=== PATIENT | female | born 1995 | race African-American/Black ===

== ENCOUNTER 2016-09-08 13:57 | Emergency (ER) | payer SELFPAY ==
[2016-09-08] MEDS ORDERED: ACETAMINOPHEN 325 MG TABLET PO ONE (14:38)
[2016-09-08] MEDS ORDERED: ONDANSETRON HCL INJ/PF 4 MG/2 ML SDV IV ONE (14:38)
[2016-09-08] MEDS ORDERED: NORMAL SALINE 1000 ML 1,000 ML IV ONE (14:38)
[2016-09-08] MEDS ORDERED: MECLIZINE HCL 25 MG TABLET PO ONE (14:39)
[2016-09-08] MEDS ORDERED: KETOROLAC TROMETHAMINE INJ/PF 30 MG/1 ML SDV IV ONE (14:40)
--- NOTE | 2016-09-08 14:41 | ER Document Report ---
HPI - HPI Patient complains to provider of: Headache Onset: Last week Onset/Duration: Waxing and waning Quality of pain: Achy Pain Level: 2 Context: Presents complaining of frontal headache off and on for the past week. Patient states that she will get the headache daily and that it will go away but then returned the next day. Patient states that she has taken Tylenol and it does help with her symptoms although today it did not completely resolve her headache pain. Patient does report nausea but denies any vomiting. Patient denies any fever. Denies any head injury. Associated Symptoms: Headache, Nausea. denies: Nonproductive cough, Productive cough, Fever, Vomiting Exacerbated by: Denies Relieved by: Denies Similar symptoms previously: No Recently seen / treated by doctor: No - ROS ROS below otherwise negative: Yes Systems Reviewed and Negative: Yes All other systems reviewed and negative - CONSTITUTIONAL Constitutional: DENIES: Fever, Chills - EENT EENT: DENIES: Sore Throat, Congestion - NEURO Neurology: REPORTS: Headache - RESPIRATORY Respiratory: DENIES: Trouble Breathing, Coughing - GASTROINTESTINAL Gastrointestinal: REPORTS: Nausea. DENIES: Patient vomiting - MUSCULOSKELETAL Musculoskeletal: DENIES: Extremity pain, Back Pain, Neck Pain - DERM Skin Color: Normal Skin Problems: None Past Medical History - General Information source: Patient Last Menstrual Period: 09/07/16 - Social History Smoking Status: Never Smoker Frequency of alcohol use: None Drug Abuse: None Occupation: food service supervisor Lives with: Family Family History: Reviewed & Not Pertinent Patient has suicidal ideation: No Patient has homicidal ideation: No - Medical History Medical History: Negative Renal/ Medical History: Denies: Hx Peritoneal Dialysis Surgical Hx: Negative Vertical Provider Document - CONSTITUTIONAL Agree With Documented VS: Yes Exam Limitations: No Limitations General Appearance: WD/WN, No Apparent Distress - INFECTION CONTROL TRAVEL OUTSIDE OF THE [place] IN LAST 30 DAYS: No - HEENT HEENT: Atraumatic, Normal ENT Exam, Normocephalic Notes: no meningismus - NECK Neck: Normal Inspection, Supple. negative: Lymphadenopathy-Left, Lymphadenopathy-Right - RESPIRATORY Respiratory: Breath Sounds Normal, No Respiratory Distress O2 Sat by Pulse Oximetry: 98 - CARDIOVASCULAR Cardiovascular: Regular Rate, Regular Rhythm, No Murmur - BACK Back: Normal Inspection - MUSCULOSKELETAL/EXTREMETIES Musculoskeletal/Extremeties: ISAIAH BLACK - NEURO Level of Consciousness: Awake, Alert, Appropriate Motor/Sensory: No Motor Deficit Notes: Negative Kernig and Brudzinainaki - DERM Integumentary: Warm, Dry, No Rash Course - Re-evaluation Re-evalutation: 09/08/16 16:20 Patient reports that headache pain has improved and that she did not need any additional medication at this time. Discussed results of patient's laboratory studies with patient. Patient encouraged to return as needed for any new or worsening symptoms. - Vital Signs Vital signs: Temp Pulse Resp BP Pulse Ox 99.0 F 94 H 20 136/82 H 98 09/08/16 14:04 09/08/16 14:04 09/08/16 14:04 09/08/16 14:04 09/08/16 14:04 - Laboratory Result Diagrams: 09/08/16 15:19 09/08/16 15:19 Laboratory results interpreted by me: 09/08/16 16:20 Labs- Entire Visit 09/08/16 09/08/16 09/08/16 15:19 15:19 15:19 WBC 6.2 RBC 4.27 Hgb 11.8 L Hct 35.9 L MCV 84 MCH 27.6 MCHC 32.8 RDW 13.4 Plt Count 393 Seg Neutrophils % 59.2 Lymphocytes % 29.9 Monocytes % 8.5 Eosinophils % 1.7 Basophils % 0.7 Absolute Neutrophils 3.7 Absolute Lymphocytes 1.9 Absolute Monocytes 0.5 Absolute Eosinophils 0.1 Absolute Basophils 0.0 Sodium 138.6 Potassium 4.5 Chloride 103 Carbon Dioxide 23 Anion Gap 13 BUN 8 Creatinine 0.54 Est GFR ( Amer) > 60 Est GFR (Non-Af Amer) > 60 Glucose 92 Calcium 9.3 Serum HCG, Qual NEGATIVE Discharge - Discharge Clinical Impression: Headache Qualifiers: Headache type: unspecified Headache chronicity pattern: episodic headache Intractability: not intractable Qualified Code(s): R51 - Headache Condition: Stable Disposition: HOME, SELF-CARE Instructions: Toradol Injection ([facility]), Headache ([facility]), Antinausea Medication ( [facility]), Use of Diphenhydramine Additional Instructions: Return immediately for any new or worsening symptoms Followup with your primary care provider, call tomorrow to make a followup appointment Prescriptions: Butalb/Acetaminophen/Caffeine [Fioricet (50-325-40 mg) Tablet] 1 - 2 tab PO Q4H #20 each Forms: Return to Work Referrals: [facility] [Provider Group] - 09/10/16
[2016-09-08 15:35] LABS: ABSOLUTE EOSINOPHILS # (AUTO) 0.1 10^3/uL (0.0-0.6); ABSOLUTE LYMPHOCYTES (AUTO) 1.9 10^3/uL (0.5-4.7); ABSOLUTE MONOCYTES (AUTO) 0.5 10^3/uL (0.1-1.4); ABSOLUTE NEUT (AUTO) 3.7 10^3/uL (1.7-8.2); BASOPHILS % (AUTO) 0.7 % (0-2); EOSINOPHILS % (AUTO) 1.7 % (0-6); HEMATOCRIT 35.9 % (36.0-47.0); HEMOGLOBIN 11.8 g/dL (12.0-15.5); HGB HCT DIFFERENCE -0.5; LYMPHOCYTES % (AUTO) 29.9 % (13-45); MEAN CORPUSCULAR HEMOGLOBIN 27.6 pg (27.0-33.4); MEAN CORPUSCULAR HGB CONC 32.8 g/dL (32.0-36.0); MEAN CORPUSCULAR VOLUME 84 fl (80-97); MONOCYTES % (AUTO) 8.5 % (3-13); RED BLOOD COUNT 4.27 10^6/uL (3.72-5.28); RED CELL DISTRIBUTION WIDTH 13.4 % (11.5-14.0); SEGMENTED NEUTROPHILS % (AUTO) 59.2 % (42-78); WHITE BLOOD COUNT 6.2 10^3/uL (4.0-10.5)
[2016-09-08 15:50] LABS: ANION GAP 13 (5-19); BLOOD UREA NITROGEN 8 mg/dL (7-20); CALCIUM 9.3 mg/dL (8.4-10.2); CARBON DIOXIDE 23 mmol/L (22-30); CHLORIDE 103 mmol/L (98-107); CREATININE RESULT 0.54 mg/dL (0.52-1.25); GLUCOSE 92 mg/dL (75-110); POTASSIUM 4.5 mmol/L (3.6-5.0); SODIUM 138.6 mmol/L (137-145)
[2016-09-08 16:49] VITALS: BP 110/57
== END 2016-09-08 16:50 | disposition home or self-care (01) ==
LOC: ER 13:57
DX: R51 Headache (principal); R11.0 Nausea
CPT/HCPCS: 99284; 96374; 96375; 36415; 84703; 85025; 80048; J1885; J2405; J7030

== ENCOUNTER 2017-02-20 15:07 | Emergency (ER) | payer MEDICAID ==
[2017-02-20 18:05] LABS: APPEARANCE,URINE CLEAR; BILIRUBIN,URINE NEGATIVE (NEGATIVE); GLUCOSE, URINE NEGATIVE (NEGATIVE); KETONES,URINE NEGATIVE (NEGATIVE); LEUKOCYTE ESTERASE,URINE NEGATIVE (NEGATIVE); NITRITE,URINE NEGATIVE (NEGATIVE); PROTEIN,URINE NEGATIVE (NEGATIVE); UROBILINOGEN,URINE NEGATIVE mg/dL (<2.0)
--- NOTE | 2017-02-20 18:06 | ER Document Report ---
HPI - HPI Pain Level: 1 Notes: Patient is a 21-year-old female who presents the ED with boyfriend complaining of exposure to gonorrhea. Patient's boyfriend came to the ED with her and was diagnosed with gonorrhea and was treated. Patient states that she is otherwise asymptomatic and just came because of the exposure. She has no new concerns or complaints. She is eating and drinking without difficulties. She is urinating normally and having normal bowel movements. She has not noticed any vaginal discharge or odor. Denies any other significant medical history. Denies any headache, fever, neck pain, URI, sore throat, chest pain, palpitations, syncope , cough, shortness of breath, wheeze, dyspnea, abdominal pain, nausea/vomiting/ diarrhea, urinary retention, dysuria, hematuria, numbness/tingling, muscle paralysis/weakness, or rash. - ROS Notes: REVIEW OF SYSTEMS: CONSTITUTIONAL : Denies fever, chills, or sweats. Denies recent illness. EENT: Denies eye, ear, throat, or mouth pain or symptoms. Denies nasal or sinus congestion or discharge. Denies throat, tongue, or mouth swelling or difficulty swallowing. CARDIOVASCULAR: Denies chest pain. Denies palpitations or racing or irregular heart beat. RESPIRATORY: Denies cough, cold, or chest congestion. Denies shortness of breath, difficulty breathing, or wheezing. GASTROINTESTINAL: Denies abdominal pain or distention. Denies nausea, vomiting , or diarrhea. GENITOURINARY: Denies difficulty urinating, painful urination, burning, frequency, blood in urine, or discharge. FEMALE GENITOURINARY: Denies vaginal bleeding, heavy or abnormal periods, irregular periods. Denies vaginal discharge or odor. MUSCULOSKELETAL: Denies back or neck pain or stiffness. Denies joint pain or swelling. SKIN: Denies rash, lesions or sores. NEUROLOGICAL: Denies confusion or altered mental status. Denies passing out or loss of consciousness. Denies dizziness or lightheadedness. Denies headache. Denies weakness or paralysis or loss of use of either side. Denies problems with gait or speech. Denies sensory loss, numbness, or tingling. ALL OTHER SYSTEMS REVIEWED AND NEGATIVE. Dictation was performed using [employer] voice recognition software Past Medical History - Social History Smoking Status: Unknown if Ever Smoked Family History: Reviewed & Not Pertinent Renal/ Medical History: Denies: Hx Peritoneal Dialysis Vertical Provider Document - CONSTITUTIONAL Agree With Documented VS: Yes Notes: PHYSICAL EXAMINATION: GENERAL: Well-appearing, well-nourished and in no acute distress. LUNGS: Breath sounds clear to auscultation bilaterally and equal. No wheezes rales or rhonchi. HEART: Regular rate and rhythm without murmurs, rubs, gallops. ABDOMEN: Soft, nontender, nondistended abdomen. No guarding, no rebound. No masses appreciated. Normal bowel sounds present. No CVA tenderness bilaterally. Extremities: No cyanosis, clubbing, or edema b/l. Peripheral pulses 2+. Capillary refill less than 3 seconds. NEUROLOGICAL: Normal speech, normal gait. Normal sensory, motor exams PSYCH: Normal mood, normal affect. SKIN: Warm, Dry, normal turgor, no rashes or lesions noted. - INFECTION CONTROL TRAVEL OUTSIDE OF THE [place] IN LAST 30 DAYS: No - RESPIRATORY O2 Sat by Pulse Oximetry: 99 Course - Re-evaluation Re-evalutation: 02/20/17 18:07 Patient is an afebrile, well-hydrated, 21-year-old female who presents the ED with exposure to gonorrhea and exposure to scabies. Vitals are stable. PE is otherwise unremarkable. Patient's boyfriend did give permission for us to talk about scabies exposure to this patient. Chlamydia/gonorrhea tests are pending. Urinalysis is also pending. I will not have the patient wait around for results, she may call later for the results and we will treat her prophylactically. patient to be given Zithromax and Rocephin. Patient will need to check in with health department this week for further evaluation and testing. I will send her home with a prescription for permethrin with scabies precautions reviewed. Recheck with your PCM in 3-5 days. Return to the ED with any worsening/concerning symptoms otherwise as reviewed in discharge. Patient is in agreement. - Vital Signs Vital signs: Temp Pulse Resp BP Pulse Ox 98.9 F 78 16 139/77 H 99 02/20/17 15:24 02/20/17 15:24 02/20/17 15:24 02/20/17 15:24 02/20/17 15:24 Discharge - Discharge Clinical Impression: Exposure to gonorrhea, Exposure to scabies Condition: Stable Disposition: HOME, SELF-CARE Instructions: Gonorrhea ([facility]), [facility], Scabies ([facility]) Additional Instructions: Push fluids (i.e. water, cranberry juice) Proper hygenic technique Keep the skin clean Safe sexual practices with condoms everytime Tylenol/ibuprofen as needed May use over the counter AZO for burning with urination Check in with the health department this week for further testing* Your chlamydia/Ghon test are pending and you will be notified if positive results; you may call in 2 days for the results as well You have been given follow up instructions including low cost follow up with one of the local primary care offices. Follow up with them tomorrow for further care and reevaluation. Return immediately if symptoms worsen F/u with your PCM in 3-5 days for a recheck Consider consult with a Urologist for ongoing/worsening symptoms. Return to the ED with any development of MOONEY/fever, trouble with vision, eye redness, worsening pain, urethral discharge, urinary retention, blood in the urine, flank pain, abdominal pain, n/v, Chest Pain, shortness of breath, joint pains, trouble breathing, or any other worsening/concerning symptoms as needed otherwise. Scabies precautions as reviewed Use cream as directed Wash and/or bag of everything in your house Prescriptions: Permethrin [Elimite] 60 gm TP ONCE PRN #1 cream..g. PRN Reason: Forms: Elevated Blood Pressure Referrals: HEALTH DEPT,[facility] [NO LOCAL MD] - Follow up as needed [facility] [Provider Group] - Follow up as needed
[2017-02-20] MEDS ORDERED: LIDOCAINE 1% INJ-PF (10 MG/ML) 30 ML SDV INJ ONE (18:10)
[2017-02-20] MEDS ORDERED: CEFTRIAXONE INJ 250 MG VIAL IM ONE (18:10)
[2017-02-20] MEDS ORDERED: AZITHROMYCIN 250 MG TABLET PO ONE (18:10)
[2017-02-20 18:54] VITALS: BP 124/76
[2017-02-20 19:27] LABS: CHLAM PCR NOT DETECTED (NOT DETECT)
== END 2017-02-20 18:54 | disposition home or self-care (01) ==
LOC: ER 15:07
DX: Z20.2 Contact with and (suspected) exposure to infections with a predominantly sexual mode of transmission (principal); Z20.7 Contact with and (suspected) exposure to pediculosis, acariasis and other infestations
CPT/HCPCS: 99283; 96372; 87086; 81001; 87491; 87591; Q0144; J3490; J0696

== ENCOUNTER 2017-05-17 12:07 | Emergency (ER) | payer MEDICAID ==
[2017-05-17] MEDS ORDERED: FAMOTIDINE 20 MG TABLET PO ONE (12:57)
[2017-05-17] MEDS ORDERED: NORMAL SALINE 1000 ML 1,000 ML IV ONE (12:57)
[2017-05-17] MEDS ORDERED: DIPHENHYDRAMINE HCL 50 MG/ML VIAL IV ONE (12:57)
[2017-05-17] MEDS ORDERED: METHYLPREDNISOLONE INJ 125 MG/2 ML SDV IV ONE (12:57)
--- NOTE | 2017-05-17 12:58 | ER Document Report ---
ED Medical Screen (RME) - General Chief Complaint: Lip Swelling Stated Complaint: LIP SWELLING Time Seen by Provider: 05/17/17 12:32 Mode of Arrival: Ambulatory Information source: Patient Notes: Patient is a 21-year-old -Irish female who presents to the ER today for both lips being very swollen that she woke up with today. Patient states that she is not on any blood pressure medication, lisinopril or any other medication. She has not tried anything new. Patient denies rash anywhere else , difficulty breathing, swollen feeling or sore throat. Patient states this has happened before but not to this extent. TRAVEL OUTSIDE OF THE [place] IN LAST 30 DAYS: No - Related Data Allergies/Adverse Reactions: ciprofloxacin [From Cipro] Allergy (Verified 05/17/17 12:08) phenazopyridine [From Pyridium] Allergy (Verified 05/17/17 12:08) Past Medical History - General Information source: Patient Renal/ Medical History: Denies: Hx Peritoneal Dialysis Review of Systems - Review of Systems EENT: See HPI Physical Exam - Vital signs Vitals: Temp Pulse Resp BP Pulse Ox 98.4 F 92 18 132/85 H 98 05/17/17 12:18 05/17/17 12:18 05/17/17 12:18 05/17/17 12:18 05/17/17 12:18 - Notes Notes: PHYSICAL EXAMINATION: GENERAL: Well-appearing and in no acute distress. ENT: Upper and lower lips with edema, airway patent Course - Vital Signs Vital signs: Temp Pulse Resp BP Pulse Ox 98.4 F 92 18 132/85 H 98 05/17/17 12:18 05/17/17 12:18 05/17/17 12:18 05/17/17 12:18 05/17/17 12:18
[2017-05-17 14:12] LABS: ABSOLUTE BASOPHILS # (AUTO) 0.1 10^3/uL (0.0-0.2); ABSOLUTE EOSINOPHILS # (AUTO) 0.2 10^3/uL (0.0-0.6); ABSOLUTE LYMPHOCYTES (AUTO) 2.1 10^3/uL (0.5-4.7); ABSOLUTE MONOCYTES (AUTO) 0.5 10^3/uL (0.1-1.4); ABSOLUTE NEUT (AUTO) 3.4 10^3/uL (1.7-8.2); BASOPHILS % (AUTO) 1.2 % (0-2); EOSINOPHILS % (AUTO) 2.6 % (0-6); HEMATOCRIT 38.1 % (36.0-47.0); HEMOGLOBIN 12.6 g/dL (12.0-15.5); MEAN CORPUSCULAR HEMOGLOBIN 27.4 pg (27.0-33.4); MEAN CORPUSCULAR VOLUME 83 fl (80-97); MONOCYTES % (AUTO) 7.7 % (3-13); PLATELET COUNT 451 10^3/uL (150-450); RED BLOOD COUNT 4.59 10^6/uL (3.72-5.28); RED CELL DISTRIBUTION WIDTH 13.4 % (11.5-14.0); SEGMENTED NEUTROPHILS % (AUTO) 54.5 % (42-78); TOTAL CELLS COUNTED % (AUTO) 100 %; WHITE BLOOD COUNT 6.3 10^3/uL (4.0-10.5)
[2017-05-17 14:22] LABS: APPEARANCE,URINE SLIGHTLY-CLOUDY; BILIRUBIN,URINE NEGATIVE (NEGATIVE); COLOR,URINE YELLOW; GLUCOSE, URINE NEGATIVE (NEGATIVE); KETONES,URINE NEGATIVE (NEGATIVE); LEUKOCYTE ESTERASE,URINE TRACE (NEGATIVE); NITRITE,URINE NEGATIVE (NEGATIVE); PROTEIN,URINE NEGATIVE (NEGATIVE); URINE SPECIFIC GRAVITY 1.027
--- NOTE | 2017-05-17 14:35 | ER Document Report ---
ED General - General Chief Complaint: Lip Swelling Stated Complaint: LIP SWELLING Time Seen by Provider: 05/17/17 12:32 Mode of Arrival: Ambulatory Information source: Patient Notes: 21-year-old female no previous medications presents with complaints of bilateral lip swelling. Patient notes symptoms started 3 hours prior to arrival , patient notes this intermittently will happen, she denies any tongue swelling or difficulty breathing or swallowing. Patient denies any other concerns at this time. Denies any recent makeup use There is a family history of intermittent swelling as well TRAVEL OUTSIDE OF THE [place] IN LAST 30 DAYS: No - HPI Onset: This morning Onset/Duration: Sudden Quality of pain: No pain Severity: Mild Pain Level: Denies Associated symptoms: Other Exacerbated by: Denies Relieved by: Denies Similar symptoms previously: Yes Recently seen / treated by doctor: No - Related Data Allergies/Adverse Reactions: ciprofloxacin [From Cipro] Allergy (Verified 05/17/17 12:08) phenazopyridine [From Pyridium] Allergy (Verified 05/17/17 12:08) Past Medical History - General Information source: Patient - Social History Smoking Status: Never Smoker Cigarette use (# per day): No Chew tobacco use (# tins/day): No Smoking Education Provided: No Family History: Reviewed & Not Pertinent Patient has suicidal ideation: No Patient has homicidal ideation: No Renal/ Medical History: Denies: Hx Peritoneal Dialysis Review of Systems - Review of Systems Notes: REVIEW OF SYSTEMS: CONSTITUTIONAL : Denies fever, chills, or sweats. Denies recent illness. EENT: Bilateral lip swelling CARDIOVASCULAR: Denies chest pain. Denies palpitations or racing or irregular heart beat. Denies ankle edema. RESPIRATORY: Denies cough, cold, or chest congestion. Denies shortness of breath, difficulty breathing, or wheezing. GASTROINTESTINAL: Denies abdominal pain or distention. Denies nausea, vomiting , or diarrhea. Denies blood in vomitus, stools, or per rectum. Denies black, tarry stools. Denies constipation. GENITOURINARY: Denies difficulty urinating, painful urination, burning, frequency, blood in urine, or discharge. FEMALE GENITOURINARY: Denies vaginal bleeding, heavy or abnormal periods, irregular periods. Denies vaginal discharge or odor. MUSCULOSKELETAL: Denies back or neck pain or stiffness. Denies joint pain or swelling. SKIN: Denies rash, lesions or sores. HEMATOLOGIC : Denies easy bruising or bleeding. LYMPHATIC: Denies swollen, enlarged glands. NEUROLOGICAL: Denies confusion or altered mental status. Denies passing out or loss of consciousness. Denies dizziness or lightheadedness. Denies headache. Denies weakness or paralysis or loss of use of either side. Denies problems with gait or speech. Denies sensory loss, numbness, or tingling. Denies seizures. PSYCHIATRIC: Denies anxiety or stress. Denies depression, suicidal ideation, or homicidal ideation. ALL OTHER SYSTEMS REVIEWED AND NEGATIVE. PHYSICAL EXAMINATION: GENERAL: Well-appearing, well-nourished and in no acute distress. HEAD: Atraumatic, normocephalic. EYES: Pupils equal round and reactive to light, extraocular movements intact, conjunctiva are normal. ENT: Nares patent, oropharynx clear without exudates. Moist mucous membranes. Upper and lower lips are edematous no airway involvement NECK: Normal range of motion, supple without lymphadenopathy LUNGS: Breath sounds clear to auscultation bilaterally and equal. No wheezes rales or rhonchi. HEART: Regular rate and rhythm without murmurs ABDOMEN: Soft, nontender, nondistended abdomen. No guarding, no rebound. No masses appreciated. Female : deferred Musculoskeletal: Normal range of motion, no pitting or edema. No cyanosis. NEUROLOGICAL: Cranial nerves grossly intact. Normal speech, normal gait. Normal sensory, motor exams PSYCH: Normal mood, normal affect. SKIN: Warm, Dry, normal turgor, no rashes or lesions noted. Dictation was performed using [employer] voice recognition software Physical Exam - Vital signs Vitals: Temp Pulse Resp BP Pulse Ox 98.4 F 92 18 132/85 H 98 05/17/17 12:18 05/17/17 12:18 05/17/17 12:18 05/17/17 12:18 05/17/17 12:18 Course - Re-evaluation Re-evalutation: 05/17/17 19:38 Patient has obvious angioedema, I believe this is familial, she looks well has no airway involvement, nonetheless I requested she stay in the ED for at least 3 hours to be watched, after this episode and after multiple re-evaluations I do believe she is stable for discharge as this has happened multiple times in the past. Patient will be given an media librarian as well as hematology for further follow-up Patient has been given very strict return precautions mother has been advised that if symptoms worsen they must return Patient states she will is looking forward to being discharged After performing a Medical Screening Examination, I estimate there is LOW risk for AIRWAY COMPROMISE, ANAPHYLAXIS, CELLULITIS, EPIGLOTTIS, or NECROTIZING FASCIITIS, thus I consider the discharge disposition reasonable. Also, there is no evidence or peritonitis, sepsis, or toxicity. I have reevaluated this patient multiple times and no significant life threatening changes are noted. The patient and I have discussed the diagnosis and risks, and we agree with discharging home with close follow-up with the understanding that symptoms and presentations can change. We also discussed returning to the Emergency Department immediately if new or worsening symptoms occur. We have discussed the symptoms which are most concerning (e.g., difficulty breathing or swallowing , fever, changing or worsening pain) that necessitate immediate return. - Vital Signs Vital signs: Temp Pulse Resp BP Pulse Ox 98.4 F 92 19 121/82 99 05/17/17 12:18 05/17/17 12:18 05/17/17 16:01 05/17/17 16:01 05/17/17 16:01 - Laboratory Result Diagrams: 05/17/17 14:00 05/17/17 13:55 Laboratory results interpreted by me: 05/17/17 05/17/17 13:55 14:00 Plt Count 451 H Urine Urobilinogen 2.0 H Ur Leukocyte Esterase TRACE H Discharge - Discharge Clinical Impression: Family history of angioedema Angioedema of lips Qualifiers: Encounter type: initial encounter Qualified Code(s): T78.3XXA - Angioneurotic edema, initial encounter Condition: Stable Disposition: HOME, SELF-CARE Instructions: Angioedema ([facility]) Prescriptions: Diphenhydramine HCl [Benadryl 50 mg Capsule] 1 cap PO Q6 PRN #20 capsule PRN Reason: Epinephrine [Epipen 2-Harry] 0.3 mg IM ASDIR PRN 1 Days #1 packet PRN Reason: Famotidine [Pepcid 40 mg Tablet] 40 mg PO DAILY 5 Days tablet Prednisone 60 mg PO DAILY 5 Days tablet Referrals: PRITI FRY PA-C [Primary Care Provider] - Follow up as needed ALTON NIETO MD [NO LOCAL MD] - Follow up tomorrow VIVIANA BARCLAY MD [ACTIVE STAFF] - Follow up tomorrow
[2017-05-17 14:36] LABS: ALANINE AMINOTRANSFERASE 34 U/L (9-52); ALBUMIN 4.3 g/dL (3.5-5.0); ALKALINE PHOSPHATASE 70 U/L (38-126); ANION GAP 12 (5-19); ASPARTATE AMINO TRANSFERASE 19 U/L (14-36); BILIRUBIN,DIRECT 0.3 mg/dL (0.0-0.4); BILIRUBIN,TOTAL 0.7 mg/dL (0.2-1.3); BLOOD UREA NITROGEN 10 mg/dL (7-20); CALCIUM 9.4 mg/dL (8.4-10.2); CARBON DIOXIDE 24 mmol/L (22-30); CHLORIDE 105 mmol/L (98-107); GLUCOSE 90 mg/dL (75-110); POTASSIUM 4.3 mmol/L (3.6-5.0); SODIUM 140.7 mmol/L (137-145); TOTAL PROTEIN 7.7 g/dL (6.3-8.2)
[2017-05-17 16:15] VITALS: BP 121/82
== END 2017-05-17 16:14 | disposition home or self-care (01) ==
LOC: ER 12:07
DX: T78.3XXA Angioneurotic edema, initial encounter (principal); R22.0 Localized swelling, mass and lump, head; X58.XXXA Exposure to other specified factors, initial encounter; Y92.009 Unspecified place in unspecified non-institutional (private) residence as the place of occurrence of the external cause
CPT/HCPCS: 36415; 80053; 81001; 81025; 85025; 96361; 96374; 96375; 99283; J1200; J2930; J7030

== ENCOUNTER → 2018-02-24 | Outpatient (CLI) | payer SELFPAY | LOC: OD 15:22 | PROVIDERS: ATTEND Nurse Practitioner Acute Care | DX: N91.2 Amenorrhea, unspecified (principal) | CPT/HCPCS: 36415; 84702 ==

== ENCOUNTER 2020-03-04 10:50 | Inpatient (IN) | payer MEDICAID ==
[2020-03-04 11:30] LABS: APPEARANCE,URINE SLIGHTLY-CLOUDY; BILIRUBIN,URINE NEGATIVE (NEGATIVE); COLOR,URINE YELLOW; GLUCOSE, URINE NEGATIVE (NEGATIVE); KETONES,URINE NEGATIVE (NEGATIVE); LEUKOCYTE ESTERASE,URINE MODERATE (NEGATIVE); NITRITE,URINE NEGATIVE (NEGATIVE); PROTEIN,URINE 100 mg/dL (NEGATIVE); URINE SPECIFIC GRAVITY 1.017; UROBILINOGEN,URINE NEGATIVE mg/dL (<2.0)
[2020-03-04 11:43] LABS: HEMATOCRIT 31.5 % (36.0-47.0); HEMOGLOBIN 10.6 g/dL (12.0-15.5); MEAN CORPUSCULAR HEMOGLOBIN 28.5 pg (27.0-33.4); MEAN CORPUSCULAR HGB CONC 33.7 g/dL (32.0-36.0); MEAN CORPUSCULAR VOLUME 85 fl (80-97); PLATELET COUNT 261 10^3/uL (150-450); RED BLOOD COUNT 3.73 10^6/uL (3.72-5.28); RED CELL DISTRIBUTION WIDTH 13.7 % (11.5-14.0)
[2020-03-04 11:49] LABS: URINE AMPHETAMINES SCREEN NEGATIVE; URINE BARBITURATES SCREEN NEGATIVE; URINE BENZODIAZEPINES SCREEN NEGATIVE; URINE COCAINE SCREEN NEGATIVE; URINE MARIJUANA (THC) SCREEN NEGATIVE; URINE METHADONE SCREEN NEGATIVE; URINE PHENCYCLIDINE SCREEN NEGATIVE
[2020-03-04 11:56] LABS: UR PRO/CREAT RATIO RESULT 0.3 mg/mg (0.0-0.2); URINE CREATININE 173.7 mg/dL (16-327); URINE PROTEIN 60.3 mg/dL (<12)
[2020-03-04 12:02] LABS: ALBUMIN 3.4 g/dL (3.5-5.0); ALKALINE PHOSPHATASE 199 U/L (38-126); ANION GAP 7 (5-19); ASPARTATE AMINO TRANSFERASE 24 U/L (14-36); BILIRUBIN,TOTAL 0.4 mg/dL (0.2-1.3); BLOOD UREA NITROGEN 8 mg/dL (7-20); CALCIUM 9.4 mg/dL (8.4-10.2); CARBON DIOXIDE 19 mmol/L (22-30); CHLORIDE 106 mmol/L (98-107); GLUCOSE 84 mg/dL (75-110); POTASSIUM 4.1 mmol/L (3.6-5.0); TOTAL PROTEIN 6.6 g/dL (6.3-8.2); URIC ACID 4.9 mg/dL (2.5-6.2)
--- NOTE | 2020-03-04 13:16 | Non Stress Test Report ---
Non Stress Test Datetime Report Generated by CPN: 03/04/2020 13:15 DEMOGRAPHIC EGA NST: 37.1 INDICATION Indication for Study (NST) Other: severe IUGR and Pre-E workup VITAL SIGNS Temperature - NST: 97.3 MONITORING Monitor Explained: Monitor Explained; Patient Verbalized Understanding Time on Monitor: 03/04/2020 11:30 Time off Monitor: 03/04/2020 12:00 NST Duration: 30 NST INTERVENTIONS NST Interventions: PO Hydration Physician Notified NST: Dr. Riddle BABY A: [id number] BABY A Movement : Present Contraction Frequency : occasional, irregular FHR Baseline : 135 Accelerations : 15X15 Decelerations : None Variability : Moderate 6-25bpm NST Review: Meets Criteria for Reactive NST NST Review and Verified By : Leland Max RN NST Results: Reactive NST REPORT Report Trigger: Send Report
--- NOTE | 2020-03-04 13:24 | Admission Physical ---
Datetime Report Generated by CPN: 03/04/2020 13:24 CURRENT ADMISSION Chief Complaint: Sent from OB Office for Evaluation and Treatment - Please Specify Indication for Induction: PreEclampsia Admit Impression : Term, Intrauterine ; No Active Labor; Intact Membranes Admit Plan: Admit to Unit; Observation/Evaluation ALLERGIES Medication Allergies: Yes Medication Allergies: azithromycin (03/04/2020); phenazopyridine (05/17/2017) Latex: No Latex Allergies OBSTETRICAL HISTORY EDC: 03/24/2020 00:00 : 1 Para: 0 Term: 0 : 0 SAB: 0 IAB: 0 Livin PHYSICAL EXAM General: Normal HEENT: Normal Neurologic: Normal Thyroid: Deferred Heart: Normal Lungs: Normal Breast: Deferred Back: Normal Abdomen: Normal Genitourinary Exam: Normal Extremities: Normal DTRs: Normal Pelvic Type: Adequate Vital Signs: Reviewed VAGINAL EXAM Dilatation: 1 Effacement: 50 Station: -3 Contraction Comments: rare MEMBRANES Membranes: Intact FETUS A EGA: 37.1 Monitoring: External US FHR- Baseline: 125 Variability: Moderate 6-25bpm Accelerations: 15X15 Decelerations: None FHR Category: Category I Presentation: Vertex Admit Comment: 23up at 37+1ega presents from the office with severe IUGR and elevated BPs. BPs elevated here but not severe range. GBS negative. + chlam and trich on pap at new OB - good ROXANA in october. ASCUS with +HRHPV on new OB pap smear. P:C ratio 0.3 and dx with PreE. Admit to the floor for 24 hour UTP and plan for likely delivery/IOL in next 24 hours. Anticipate . INFORMED CONSENT Informed Consent Obtained: Vaginal Delivery; Induction of Labor; Risks, Benefits and Alternatives Discussed Signature: with User ID: [email or web address]
[2020-03-05 06:41] LABS: HEMATOCRIT 32.4 % (36.0-47.0); MEAN CORPUSCULAR HEMOGLOBIN 28.7 pg (27.0-33.4); MEAN CORPUSCULAR HGB CONC 33.8 g/dL (32.0-36.0); MEAN CORPUSCULAR VOLUME 85 fl (80-97); PLATELET COUNT 256 10^3/uL (150-450); RED BLOOD COUNT 3.82 10^6/uL (3.72-5.28); RED CELL DISTRIBUTION WIDTH 14.1 % (11.5-14.0); WHITE BLOOD COUNT 5.4 10^3/uL (4.0-10.5)
[2020-03-05 07:03] LABS: ALBUMIN 3.2 g/dL (3.5-5.0); ALKALINE PHOSPHATASE 206 U/L (38-126); ANION GAP 8 (5-19); ASPARTATE AMINO TRANSFERASE 25 U/L (14-36); BILIRUBIN,DIRECT 0.2 mg/dL (0.0-0.4); BILIRUBIN,TOTAL 0.5 mg/dL (0.2-1.3); BLOOD UREA NITROGEN 6 mg/dL (7-20); CALCIUM 8.9 mg/dL (8.4-10.2); CARBON DIOXIDE 20 mmol/L (22-30); CHLORIDE 106 mmol/L (98-107); GLUCOSE 84 mg/dL (75-110); POTASSIUM 4.4 mmol/L (3.6-5.0); TOTAL PROTEIN 6.4 g/dL (6.3-8.2); URIC ACID 5.2 mg/dL (2.5-6.2)
[2020-03-05] MEDS ORDERED: RINGERS SOLUTION,LACTATED 1,000 ML IV ONE (13:49)
[2020-03-05] MEDS ORDERED: ZOLPIDEM TARTRATE 5 MG TABLET PO PRN (13:49)
[2020-03-05] MEDS ORDERED: OXYTOCIN/0.9 % SODIUM CHLORIDE 30 UNIT/500 ML RTUINJ IV PRN (13:49)
[2020-03-05] MEDS ORDERED: DINOPROSTONE 10 MG VAGINAL INSERT.SR PV ONE (13:49)
[2020-03-05] MEDS ORDERED: RINGERS SOLUTION,LACTATED 300 ML IV ONE (13:49)
[2020-03-05] MEDS ORDERED: MAG HYDROX/AL HYDROX/SIMETH SUSP 30 ML UDCUP PO PRN (13:49)
[2020-03-05] MEDS ORDERED: ACETAMINOPHEN 325 MG TABLET PO PRN (13:49)
[2020-03-05] MEDS ORDERED: RINGERS SOLUTION,LACTATED 1,000 ML IV PRN (13:49)
[2020-03-05] MEDS ORDERED: DINOPROSTONE 10 MG VAGINAL INSERT.SR ONE (14:42)
[2020-03-05] MEDS ORDERED: LIDOCAINE 1% INJ-PF (10 MG/ML) 30 ML SDV ONE (14:42)
[2020-03-05] MEDS ORDERED: OXYTOCIN/0.9 % SODIUM CHLORIDE 30 UNIT/500 ML RTUINJ ONE (14:42)
[2020-03-05] MEDS ORDERED: OXYTOCIN 10 UNIT/ML VIAL ONE (14:42)
[2020-03-05] MEDS ORDERED: MISOPROSTOL 0.2 MG TABLET ONE (14:42)
[2020-03-05] MEDS: RINGERS SOLUTION,LACTATED 1,000 ML IV PRN ×2 (18:22→22:17)
[2020-03-05] MEDS ORDERED: LABETALOL HCL INJ 20 MG/4 ML DISP.SYRIN IV ONE ×2 (20:36→21:05)
[2020-03-05] MEDS ORDERED: LABETALOL HCL 200 MG TABLET ONE (22:07)
[2020-03-05] MEDS ORDERED: ZOLPIDEM TARTRATE 5 MG TABLET ONE (22:13)
[2020-03-05] MEDS: LABETALOL HCL 200 MG TABLET PO SCH (22:16)
[2020-03-06] MEDS ORDERED: PROMETHAZINE HCL INJ 25 MG/1 ML VIAL IV ONE (01:03)
[2020-03-06] MEDS ORDERED: LABETALOL HCL INJ 20 MG/4 ML DISP.SYRIN IV ONE ×4 (01:03→20:30)
[2020-03-06] MEDS ORDERED: NALBUPHINE HCL INJ 10 MG/1 ML AMPULE INJ ONE (01:03)
[2020-03-06] MEDS ORDERED: PROMETHAZINE HCL INJ 25 MG/1 ML VIAL ONE (01:09)
[2020-03-06] MEDS ORDERED: NALBUPHINE HCL INJ 10 MG/1 ML AMPULE ONE (01:09)
[2020-03-06] MEDS ORDERED: ACETAMINOPHEN 1,000 MG/100 ML RTUPB IV PRN (01:56)
[2020-03-06] MEDS ORDERED: ACETAMINOPHEN 1,000 MG/100 ML RTUPB IV ONE (02:04)
[2020-03-06] MEDS ORDERED: LABETALOL HCL 200 MG TABLET ONE ×2 (09:02→20:09)
[2020-03-06] MEDS: LABETALOL HCL 200 MG TABLET PO SCH ×2 (09:04→22:00)
[2020-03-06] MEDS ORDERED: EPHEDRINE SULFATE INJ 50 MG/1 ML AMPULE ONE (09:09)
[2020-03-06] MEDS ORDERED: ROPIVACAINE HCL 0.2% INJ/PF (2 MG/ML) 20 ML SDV ONE (09:10)
[2020-03-06] MEDS ORDERED: FENTANYL/BUPIVACAINE/NS/PF 300 MCG/150 ML RTUINJ EPI ONE (09:10)
[2020-03-06] MEDS: RINGERS SOLUTION,LACTATED 1,000 ML IV PRN (11:52)
[2020-03-06] MEDS ORDERED: DIPHENHYDRAMINE HCL 25 MG CAPSULE PO PRN (19:01)
[2020-03-06] MEDS ORDERED: BENZOCAINE/MENTHOL AEROSOL SPRAY 56 ML TOP PRN (19:01)
[2020-03-06] MEDS ORDERED: ACETAMINOPHEN WITH CODEINE #3 TABLET PO PRN ×2 (19:01)
[2020-03-06] MEDS ORDERED: ACETAMINOPHEN 325 MG TABLET PO PRN (19:01)
[2020-03-06] MEDS ORDERED: OXYTOCIN/0.9 % SODIUM CHLORIDE 30 UNIT/500 ML RTUINJ IV PRN (19:01)
[2020-03-06] MEDS ORDERED: NA PHOS,M-B/NA PHOS,DI-BA (ADULT) 133 ML ENEMA PR PRN (19:01)
[2020-03-06] MEDS ORDERED: ACETAMINOPHEN 650 MG SUPP.RECT PR PRN (19:01)
[2020-03-06] MEDS ORDERED: PROMETHAZINE HCL INJ 25 MG/1 ML VIAL IV PRN (19:01)
[2020-03-06] MEDS ORDERED: PROMETHAZINE HCL 25 MG SUPP.RECT PR PRN (19:01)
[2020-03-06] MEDS ORDERED: DIPH/PERTUSS(ACELL)/TETANUS VAC/PF 0.5 ML SYR (>=10YO) IM PRN (19:01)
[2020-03-06] MEDS ORDERED: DIBUCAINE 1% OINTMENT 28 GM TP PRN (19:01)
[2020-03-06] MEDS ORDERED: PROMETHAZINE HCL 25 MG TABLET PO PRN (19:01)
[2020-03-06] MEDS ORDERED: ZOLPIDEM TARTRATE 5 MG TABLET PO PRN (19:01)
[2020-03-06] MEDS ORDERED: MAGNESIUM HYDROXIDE SUSP 30 ML UDCUP PO PRN (19:01)
[2020-03-06] MEDS ORDERED: MEASLES,MUMPS&RUBELLA VACC/PF 0.5 ML VIAL SUBCUT PRN (19:01)
[2020-03-06] MEDS ORDERED: GLYCERIN/WITCH HAZEL LEAF 1 EACH MED..WIPE TP PRN (19:01)
[2020-03-06] MEDS ORDERED: PSEUDOEPHEDRINE HCL 30 MG TABLET PO PRN (19:01)
[2020-03-06] MEDS ORDERED: IBUPROFEN 800 MG TABLET ONE (20:09)
[2020-03-06] MEDS: IBUPROFEN 800 MG TABLET PO SCH ×2 (20:14→22:51)
--- NOTE | 2020-03-06 20:22 | Birth Certificate Data ---
Cert Data Datetime Report Generated by CPN: 03/06/2020 20:21 CERTIFICATE DATA Delivery Provider: Erlinda Christie MD (03/04/2020 11:08:Rashida Pinon RN) 47a. Care: Yes (03/04/2020 11:08:Arianna Hernández RN) 47b. Date of First Visit: 09/21/2019 00:00 (03/04/2020 11:08:Arianna Hernández RN) 47c. Date of Last Visit: 03/04/2020 00:00 (03/04/2020 11:08:Arianna Hernández RN) 47d. Number of Visits: 9 (03/04/2020 11:08:Arianna Hernández RN) 48b. Now Livin (03/04/2020 11:08:Shivani Ceja RN) RISK FACTORS IN THIS 49a. Diabetes: No (03/04/2020 11:08:Arianna Hernández RN) 49b. Hypertension: No (03/04/2020 11:08:Arianna Hernández RN) Type of Hypertension: Gestational (PIH, Pre-eclampsia) (03/04/2020 11:08:Arianna Hernández RN) 49c. Previous Births: 0 (03/04/2020 11:08:Shivani Ceja RN) 49d. Stillborns: No (03/04/2020 11:08:Arianna Hernández RN) 49d. IUGR: No (03/04/2020 11:08:Arianna Hernández RN) 49e. Infertility Treatment: No (03/04/2020 11:08:Arianna Hernández RN) 49f. Previous Cesareans: 0 (03/04/2020 11:08:Arianna Hernández RN) Mother's Height 50b. Height Inches: 64 (03/05/2020 17:26:QS system process) Mother's Weight 51a. Pre- Weight (lbs): 238 (03/04/2020 11:08:Arianna Hernández RN) 51b. Weight at Delivery (lbs): 260 (03/05/2020 17:26:QS system process) 52. Dt Last Normal Menses Began: 06/13/2019 00:00 (03/04/2020 11:08:Arianna Hernández RN) Infections Present/Treated 53a. Gonorrhea: No (03/04/2020 11:08:Arianna Hernández RN) Results this Hospital Visit : Negative (03/04/2020 11:08:Arianna Hernández RN) 53b. Syphilis: No (03/04/2020 11:08:Arianna Hernández RN) 53c. Chlamydia: Yes (03/04/2020 11:08:Arianna Hernández RN) Results this Hospital Visit: Negative (03/04/2020 11:08:Arianna Hernández RN) 53d. Hepatitis B: No (03/04/2020 11:08:Arianna Hernández RN) Results this Hospital Visit: Negative (03/04/2020 11:08:Arianna Hernández RN) 53h. Mother Tested for HBsAG: Yes (03/04/2020 11:08:Arianna Hernández RN) 53i. Date Tested: 09/21/2019 00:00 (03/04/2020 11:08:Arianna Hernández RN) 53j. Test Result: Negative (03/04/2020 11:08:Ariannaleni Hernández RN) Obstetric Procedures 54a, b, c. Obstetric Procedures: Ultrasound (03/04/2020 11:08:Rashida Aimeejoni RN) Cigarette Smoking Cigarette Smoking: Never Smoker. [id number] (03/04/2020 11:08:Arianna Hernández RN) Onset of Labor 56a. PROM >12 Hrs: 4.20 (03/04/2020 11:08:QS system process) 56b. Precipitous Labor <3 Hrs: 4 (03/04/2020 11:08:QS system process) 56c. Prolonged Labor > 20 Hrs: 4 (03/04/2020 11:08:QS system process) 57a. Induction of Labor: Induction (03/04/2020 11:08:Rashida Pinon RN) 57a. Induction of Labor: Cervidil (03/05/2020 18:52:Arianna Hernández RN) 57c. Non-Vertex Presentation A: Vertex (03/04/2020 11:08:Rashida Pinon RN) 57d. Steroids - Lung Mat: None (03/04/2020 11:08:Rashida Pinon RN) 57d. Steroids - Lung Mat: Not Applicable (03/04/2020 11:08:Rashida Pinon RN) 57f. Mat [place] or Temp >100.4: 99.8 (03/04/2020 11:08:Rashida Pinon RN) 57g. Moderate/Heavy Meconium: Clear (03/06/2020 14:26:Rashida Pinon RN) 57h. Intolerance of Labor: N/A (03/04/2020 11:08:Arianna Hernández RN) : N/A (03/04/2020 11:08:Arianna Hernández RN) 57i. Epidural/Spinal Anesthesia: Epidural (03/04/2020 11:08:Rashida Pinon RN) Method of Delivery 58a. Forceps - Unsuccessful A: N/A (03/04/2020 11:08:Rashida Feuston, RN) 58b. Vacuum - Unsuccessful A: N/A (03/04/2020 11:08:Rashida Feuston, RN) 58c. Presentation at 58c. Presentation at - A : Vertex (03/04/2020 11:08:Rashida ust, RN) 58c. Presentation at - A : N/A (03/04/2020 11:08:Rashida Feuston, RN) 58c. Presentation at - A : Cephalic (03/04/2020 11:08:June Feuston, RN) Final Route and Method of Del 58d. Baby A Route/Delivery: Vaginal (03/06/2020 18:38:Jodi Hanley RN) 58e. Trial of Labor Attempted: No (03/04/2020 11:08:Rashida Pinon RN) 58e. Trial of Labor Attempted A: N/A (03/04/2020 11:08:Rashida Pinon RN) 58e. Trial of Labor Attempted B: N/A (03/04/2020 11:08:Rashida Pinon RN) Maternal Morbidity 59b. 3rd or 4th Degree Lacs: Perineal (03/04/2020 11:08:Erlinda Christie MD) 59b. 3rd or 4th Degree Lacs: left labial laceration (03/04/2020 11:08:Erlinda Christie MD) Birthweight Baby A: 2590 (03/04/2020 11:08:Blanca Rivera RN) 60a. Pounds : 5 (03/04/2020 11:08:QS system process) 60b. Ounces: 11 (03/04/2020 11:08:QS system process) 61. GA at Delivery Baby A: 37.3 (03/04/2020 11:08:Rashida Pinon RN) : Early Term- 37- 38.6 Weeks (03/04/2020 11:08:QS system process) 62a. 5 Minute Baby A: 9 (03/04/2020 11:08:QS system process)
--- NOTE | 2020-03-06 20:22 | Delivery Summary ---
Del Sum A-C Datetime Report Generated by CPN: 03/06/2020 20:21 DELIVERY PERSONNEL DELIVERY PERSONNEL: [id number] Delivery Doctor:: Erlinda Christie MD PCB DESIGNER:: Swapna Ko CRNA Labor and Delivery Nurse:: Rashida Pinon RNshovel loader operator Nurse:: Arianna Hernández RN Nursery Nurse:: Jodi Hanley RN Chemical Supervisor/PIPE PRODUCTION WORKER: Sherley Bains, PAINTING MANAGER MATERNAL INFORMATION Delivery Anesthesia: Epidural Medications After Delivery: Pitocin 30 Units in 500ml NS/D5W Delivery QBL: 150 Maternal Complications: None; Other Complication Details: Preeclampsia Provider Comments: Called to patients room as she was complete and +3. Pushed through several contractions and a viable female was delivered. After delivery of the head, the shoulders and rest of the body followed easily. Baby vigorous and cord clamping delayed for 30 seconds. After doubly clamping and cutting cord, placed skin to skin with mother. Both stable. LABOR SUMMARY EDC: 03/24/2020 00:00 No. Babies in Womb: 1 Attempted: No Labor Anesthesia: Epidural LABOR INFORMATION Reason for Induction: Intrauterine Growth Retardation; Pre-Eclampsia Onset of Labor: 03/06/2020 14:26 Complete Dilatation: 03/06/2020 16:31 Cervical Ripening Agents: Cervidil Oxytocin: Induction Group B Beta Strep: negative Antibiotics # of Doses: n/a Name of Antibiotic Given: n/a Steroids Given: None Reason Steroids Not Administered: Not Applicable MEMBRANES Membranes Rupture Method: Artificial Rupture of Membranes: 03/06/2020 14:26 Length of Rupture (hr): 4.20 Amniotic Fluid Color: Clear Amniotic Fluid Amount: Small Amniotic Fluid Odor: Normal STAGES OF LABOR Stage 1 hr: 2 Stage 1 min: 5 Stage 2 hr: 2 Stage 2 min: 7 Stage 3 hr: 0 Stage 3 min: 4 Total Time in Labor hr: 4 Total Time in Labor min: 16 VAGINAL DELIVERY Episiotomy: None Laceration #1: Perineal Laceration Extension #1: Second Degree Other Laceration: left labial laceration Laceration Repair: Yes Laceration Repair Note: Repaired with 2-0 chromic in a layered fashion Sponge Count Correct: Yes Sharps Count Correct: Yes CSECTION DELIVERY Primary Indication: N/A Secondary Indication: N/A CSection Incidence: N/A Labor: N/A Elective: N/A CSection Incision: N/A BABY A INFORMATION Delivery Date/Time: 03/06/2020 18:38 Method of Delivery: Vaginal Nurse Controlled Delivery: No Born in Route : No : N/A Forceps: N/A Vacuum Extraction: N/A Shoulder Dystocia : No PRESENTATION/POSITION BABY A Presentation: Cephalic Cephalic Presentation: Vertex Vertex Position: Right Occipital Anterior Breech Presentation: N/A PLACENTA INFORMATION BABY A Placenta Delivery Time : 03/06/2020 18:42 Placenta Method of Delivery: Spontaneous Placenta Status: Delivered SCORES BABY A Heart Rate 1 min: >100 bpm Resp Effort 1 min: Good Cry Reflex Irritability 1 min: Cough or Sneeze or Pulls Away Muscle Tone 1 min: Active Motion Color 1 min: Body [place], Extremities Blue Resuscitation Effort 1 min: Tactile Stimulation SCORE 1 MIN: 9 Heart Rate 5 min: >100 bpm Resp Effort 5 min: Good Cry Reflex Irritability 5 min: Cough or Sneeze or Pulls Away Muscle Tone 5 min: Active Motion Color 5 min: Body [place], Extremities Blue Resuscitation Effort 5 min: N/A SCORE 5 MIN: 9 INFORMATION BABY A Gestational Age at Delivery: 37.3 Gestational Status: Early Term- 37- 38.6 Weeks Infant Outcome : Liveborn Condition : Stable Infant Sex: Female IDENTIFICATION BABY A Verification Date/Time: 03/06/2020 18:57 ID Band Number: [id number] Mother's Name Verified: Yes RN Verifying : B Baidy RN Additional Verifying Personnel: A Keirytennille RN WEIGHT/LENGTH BABY A Infant Birthweight (gm): 2590 Weight (lb): 5 Weight (oz): 11 Length (in): 18.50 Length (cm): 46.99 CORD INFORMATION BABY A No. Cord Vessels: 3 Nuchal Cord : N/A Cord Blood Taken: Yes-For Storage (Mom's Blood type +) Suction: Mouth; Nose ASSESSMENT BABY A Complications: None Physical Findings at Delivery: Within Normal Limits Respirations: Appears Normal Skin to Skin: Yes Transferred To: Remains with Mother BABY B INFORMATION : N/A SIGNATURES Signature: with User ID: [email or web address] : with User ID: Kelly
[2020-03-06] MEDS ORDERED: LABETALOL HCL 200 MG TABLET PO SCH (21:00)
[2020-03-06] MEDS: FAMOTIDINE 20 MG TABLET PO SCH (22:00)
[2020-03-07] MEDS: IBUPROFEN 800 MG TABLET PO SCH ×3 (06:03→22:18)
[2020-03-07 07:10] LABS: HEMATOCRIT 33.2 % (36.0-47.0); MEAN CORPUSCULAR HEMOGLOBIN 28.6 pg (27.0-33.4); MEAN CORPUSCULAR HGB CONC 33.3 g/dL (32.0-36.0); MEAN CORPUSCULAR VOLUME 86 fl (80-97); RED BLOOD COUNT 3.87 10^6/uL (3.72-5.28); RED CELL DISTRIBUTION WIDTH 13.9 % (11.5-14.0)
[2020-03-07 07:35] LABS: PLATELET COUNT 219 10^3/uL (150-450)
[2020-03-07 07:36] LABS: WHITE BLOOD COUNT 13.4 10^3/uL (4.0-10.5)
[2020-03-07] MEDS: FERROUS SULFATE 325 MG TABLET PO SCH ×2 (10:07→17:41)
[2020-03-07] MEDS: FAMOTIDINE 20 MG TABLET PO SCH ×2 (10:07→22:18)
[2020-03-07] MEDS: SENNOSIDES/DOCUSATE 8.6-50 MG 1 EACH TABLET PO SCH (10:07)
[2020-03-07] MEDS: DOCUSATE SODIUM 100 MG CAPSULE PO SCH ×2 (10:07→17:41)
[2020-03-07] MEDS: PRENATAL VITAMIN W DHA CAPSULE PO SCH (10:07)
[2020-03-07] MEDS: LABETALOL HCL 200 MG TABLET PO SCH ×3 (10:09→22:17)
[2020-03-07] MEDS ORDERED: INFLUENZA QUAD (6MOS+) 2020-21 VAC 0.5 ML SYR IM ONE (11:15)
--- NOTE | 2020-03-07 15:15 | PDOC PROGRESS REPORT ---
Subjective-OB Progress Note for:: 03/07/20 Subjective: reports bleeding slowing, pain controlled with current meds. denies needs Physical Exam (OB) Vital Signs: Temp Pulse Resp BP Pulse Ox 98.1 F 85 18 124/58 L 99 03/07/20 08:00 03/07/20 08:00 03/07/20 08:00 03/07/20 08:00 03/07/20 08:00 Intake & Output 03/06/20 03/07/20 03/08/20 06:59 06:59 06:59 Intake Total 1079 400 Balance 1079 400 Weight 117.6 kg 116.8 kg - Maternal Morbidity 59. Maternal Morbidity (serious complications experinced by the mother associated with labor and delivery: None of the above - Abdomen Description: Soft, Round Hernia Present: No Fundal Description: Firm, Midline Fundal Height: u/u - u/2 - Abdominal Distension: No distension Tenderness: Nontender - Extremities Lower extremities: Stephanie's sign - neg Calf: Normal, Nontender Objective-Diagnostic Laboratory: 03/07/20 06:56 03/05/20 06:12 03/07/20 06:56 WBC 13.4 H D RBC 3.87 Hgb 11.0 L Hct 33.2 L MCV 86 MCH 28.6 MCHC 33.3 RDW 13.9 Plt Count 219 Assessment and Plan(PN) - Time Spent with Patient Time with patient: Less than 15 minutes - Disposition Anticipated Discharge Disposition: Home, Self Care Anticipated Discharge Timeframe: within 24 hours
[2020-03-08] MEDS: IBUPROFEN 800 MG TABLET PO SCH (05:32)
[2020-03-08] MEDS: FAMOTIDINE 20 MG TABLET PO SCH (09:45)
[2020-03-08] MEDS: FERROUS SULFATE 325 MG TABLET PO SCH (09:45)
[2020-03-08] MEDS: DOCUSATE SODIUM 100 MG CAPSULE PO SCH (09:45)
[2020-03-08] MEDS: SENNOSIDES/DOCUSATE 8.6-50 MG 1 EACH TABLET PO SCH (09:45)
[2020-03-08] MEDS: PRENATAL VITAMIN W DHA CAPSULE PO SCH (09:45)
[2020-03-08] MEDS: LABETALOL HCL 200 MG TABLET PO SCH (09:46)
--- NOTE | 2020-03-08 11:32 | PDOC DISCHARGE SUMMARY ---
Impression - Admit/DC Date/PCP Admission Date/Primary Care Provider: 03/04/20 12:32 JEAN GARCIA MD Discharge Date: 03/08/20 - PP Day #2, doing well, no complaints, denies headache, B+, rubella Immune, bottlefeeding. IOL for Pre-eclampsia and IUGR. - Additional Information Referrals: JEAN GARCIA MD [Primary Care Provider] - Home Medications: Epinephrine [Epipen 2-Harry] 0.3 mg IM ASDIR PRN 1 Days #1 packet 05/17/17 Pnv No.95/Ferrous Fum/Folic AC [ Caplet] 1 tab PO DAILY 03/04/20 Hospital Course 59. Maternal Morbidity (serious complications experinced by the mother associated with labor and delivery: None of the above Results Laboratory Results: WBC 13.4 10^3/uL (4.0-10.5) H D 03/07/20 06:56 RBC 3.87 10^6/uL (3.72-5.28) 03/07/20 06:56 Hgb 11.0 g/dL (12.0-15.5) L 03/07/20 06:56 Hct 33.2 % (36.0-47.0) L 03/07/20 06:56 MCV 86 fl (80-97) 03/07/20 06:56 MCH 28.6 pg (27.0-33.4) 03/07/20 06:56 MCHC 33.3 g/dL (32.0-36.0) 03/07/20 06:56 RDW 13.9 % (11.5-14.0) 03/07/20 06:56 Plt Count 219 10^3/uL (150-450) 03/07/20 06:56 Sodium 133.5 mmol/L (137-145) L 03/05/20 06:12 Potassium 4.4 mmol/L (3.6-5.0) 03/05/20 06:12 Chloride 106 mmol/L (98-107) 03/05/20 06:12 Carbon Dioxide 20 mmol/L (22-30) L 03/05/20 06:12 Anion Gap 8 (5-19) 03/05/20 06:12 BUN 6 mg/dL (7-20) L 03/05/20 06:12 Creatinine 0.54 mg/dL (0.52-1.25) 03/05/20 06:12 Est GFR ( Amer) > 60 (>60) 03/05/20 06:12 Est GFR (MDRD) Non-Af > 60 (>60) 03/05/20 06:12 Glucose 84 mg/dL (75-110) 03/05/20 06:12 Uric Acid 5.2 mg/dL (2.5-6.2) 03/05/20 06:12 Calcium 8.9 mg/dL (8.4-10.2) 03/05/20 06:12 Total Bilirubin 0.5 mg/dL (0.2-1.3) 03/05/20 06:12 Direct Bilirubin 0.2 mg/dL (0.0-0.4) 03/05/20 06:12 Neonat Total Bilirubin Not Reportable 03/05/20 06:12 Neonat Direct Bilirubin Not Reportable 03/05/20 06:12 Neonat Indirect Bili Not Reportable 03/05/20 06:12 AST 25 U/L (14-36) 03/05/20 06:12 ALT 14 U/L (<35) 03/05/20 06:12 Alkaline Phosphatase 206 U/L (38-126) H 03/05/20 06:12 Lactate Dehydrogenase 146 U/L (120-246) 03/05/20 06:12 Total Protein 6.4 g/dL (6.3-8.2) 03/05/20 06:12 Albumin 3.2 g/dL (3.5-5.0) L 03/05/20 06:12 Urine Color YELLOW 03/04/20 10:58 Urine Appearance SLIGHTLY-CLOUDY 03/04/20 10:58 Urine pH 7.0 (5.0-9.0) 03/04/20 10:58 Ur Specific [place] 1.017 03/04/20 10:58 Urine Protein 100 mg/dL (NEGATIVE) H 03/04/20 10:58 Urine Glucose (UA) NEGATIVE mg/dL (NEGATIVE) 03/04/20 10:58 Urine Ketones NEGATIVE mg/dL (NEGATIVE) 03/04/20 10:58 Urine Blood NEGATIVE (NEGATIVE) 03/04/20 10:58 Urine Nitrite NEGATIVE (NEGATIVE) 03/04/20 10:58 Urine Bilirubin NEGATIVE (NEGATIVE) 03/04/20 10:58 Urine Urobilinogen NEGATIVE mg/dL (<2.0) 03/04/20 10:58 Ur Leukocyte Esterase MODERATE (NEGATIVE) H 03/04/20 10:58 Urine WBC (Auto) 2 /HPF 03/04/20 10:58 Squamous Epi Cells Auto 3 /HPF 03/04/20 10:58 Urine Mucus (Auto) RARE /LPF 03/04/20 10:58 Urine Creatinine 173.7 mg/dL (16-327) 03/04/20 10:58 Protein/Creatinin Ratio 0.3 mg/mg (0.0-0.2) H 03/04/20 10:58 Urine Total Protein 60.3 mg/dL (<12) H 03/04/20 10:58 Urine Ascorbic Acid NEGATIVE (NEGATIVE) 03/04/20 10:58 Urine Opiates Screen Cancelled 03/05/20 17:43 Urine Methadone Screen Cancelled 03/05/20 17:43 Ur Barbiturates Screen Cancelled 03/05/20 17:43 Ur Phencyclidine Scrn Cancelled 03/05/20 17:43 Ur Amphetamines Screen Cancelled 03/05/20 17:43 U Benzodiazepines Scrn Cancelled 03/05/20 17:43 Urine Cocaine Screen Cancelled 03/05/20 17:43 U Marijuana (THC) Screen Cancelled 03/05/20 17:43 RPR NONREACTIVE (NONREACTIVE) 03/04/20 11:29 Blood Type B POSITIVE 03/04/20 11:29 Antibody Screen NEGATIVE 03/04/20 11:29
[2020-03-08 11:57] VITALS: BP 135/64
== END 2020-03-08 13:08 | disposition home or self-care (01) | DRG 807 ==
LOC: LC 10:50 → LR 12:32 → 2S 13:01 → LR 03-05 17:25 → 2S 03-06 21:25
PROVIDERS: ADMIT Student in an Organized Health Care Education/Training Program; ATTEND Obstetrics & Gynecology
PROC: 10E0XZZ Delivery of Products of Conception, External Approach (ICD-10-PCS; principal; 2020-03-06)
PROC: 0KQM0ZZ Repair Perineum Muscle, Open Approach (ICD-10-PCS; 2020-03-06)
PROC: 3E02340 Introduction of Influenza Vaccine into Muscle, Percutaneous Approach (ICD-10-PCS; 2020-03-08)
DX: O14.94 Unspecified pre-eclampsia, complicating childbirth (principal); Z37.0 Single live birth; O36.5930 Maternal care for other known or suspected poor fetal growth, third trimester, not applicable or unspecified; O70.1 Second degree perineal laceration during delivery; Z3A.37 37 weeks gestation of pregnancy; Z23 Encounter for immunization; Z88.1 Allergy status to other antibiotic agents
CPT/HCPCS: 1967; 36415; 59025; 80053; 80307; 81001; 82570; 83615; 84156; 84550; 85027; 86592; 86850; 86900; 86901; 88307; 90471; 90686; 94760; G0008; J0131; J2300; J2550; J2590; J2795; J3010; J3490